=== PATIENT | female | born 1980 | race Caucasian/White ===

== ENCOUNTER 2017-04-16 06:59 | Emergency (ER) | payer OTHER ==
[2017-04-16 07:05] VITALS: TEMP 98.2
[2017-04-16] MEDS ORDERED: ONDANSETRON 4 MG/2 ML VIAL ONE (07:17)
[2017-04-16] MEDS ORDERED: ONDANSETRON 4 MG/2 ML VIAL IVP ONE ×2 (07:19→08:56)
[2017-04-16] MEDS ORDERED: NS 1,000 ML IV ONE ×2 (07:19→12:20)
[2017-04-16] MEDS ORDERED: HYDROmorphONE/DILAUDID 1 MG/ML INJ IVP ONE (07:20)
--- NOTE | 2017-04-16 07:25 | EDPHY ---
H & P Stated Complaint: generalized abd pain and nausea since 0400 Time Seen by Provider: 04/16/17 07:13 HPI/ROS: CHIEF COMPLAINT: Vomiting HISTORY OF PRESENT ILLNESS: The patient is a 36-year-old female who comes to the emergency department complaining of abdominal cramping, pain and now vomiting. She states that she has a over eating disorder and that this has happened to her several times before. She states she has had a lot of stress lately and ate a large amount of food yesterday evening and finished around midnight. She has not had a fever. No diarrhea. She vomited once in the room and now states that she feels almost completely better. She denies risk of . No urinary symptoms. REVIEW OF SYSTEMS: Constitutional: denies: chills, fever, recent illness, recent injury EENTM: denies: blurred vision, double vision, nose congestion Respiratory: denies: cough, shortness of breath Cardiac: denies: chest pain, irregular heart rate, lightheadedness, palpitations Gastrointestinal/Abdominal: See HPI Genitourinary: denies: dysuria, frequency, hematuria, pain Musculoskeletal: denies: joint pain, muscle pain Skin: denies: lesions, rash, jaundice, bruising Neurological: denies: headache, numbness, paresthesia, tingling, dizziness, weakness Hematologic/Lymphatic: denies: blood clots, easy bleeding, easy bruising Immunologic/allergic: denies: HIV/AIDS, transplant EXAM: GENERAL: Well-appearing, well-nourished and in no acute distress. HEAD: Atraumatic, normocephalic. EYES: Pupils equal round and reactive to light, extraocular movements intact, sclera anicteric, conjunctiva are normal. ENT: TMs normal, nares patent, oropharynx clear without exudates. Moist mucous membranes. NECK: Normal range of motion, supple without lymphadenopathy or JVD. LUNGS: Breath sounds clear to auscultation bilaterally and equal. No wheezes rales or rhonchi. HEART: Regular rate and rhythm without murmurs, rubs or gallops. ABDOMEN: Slight tenderness periumbilical , normoactive bowel sounds. No guarding, no rebound. No masses appreciated. BACK: No CVA tenderness, no spinal tenderness, step-offs or deformities EXTREMITIES: Normal range of motion, no pitting or edema. No clubbing or cyanosis. NEUROLOGICAL: Cranial nerves II through XII grossly intact. Normal speech, normal gait. 5/5 strength, normal movement in all extremities, normal sensation PSYCH: Normal mood, normal affect. SKIN: Warm, dry, normal turgor, no visible rashes or lesions. Source: Patient Exam Limitations: No limitations - Personal History LMP (Females 10-55): 1-7 Days Ago Current Tetanus/Diphtheria Vaccine: Yes - Medical/Surgical History Hx Asthma: No Hx Chronic Respiratory Disease: No Hx Diabetes: No Hx Cardiac Disease: No Hx Renal Disease: No Hx Cirrhosis: No Hx Alcoholism: No Hx HIV/AIDS: No Hx Splenectomy or Spleen Trauma: No Other PMH: Colitis - Family History Significant Family History: No pertinent family hx - Social History Smoking Status: Former smoker Alcohol Use: Sober Drug Use: None Constitutional: Initial Vital Signs Temperature (C) 36.8 C 04/16/17 07:02 Heart Rate 90 04/16/17 07:02 Respiratory Rate 16 04/16/17 07:02 Blood Pressure 94/81 H 04/16/17 07:02 O2 Sat (%) 97 04/16/17 07:02 O2 Delivery Mode Room Air Allergies/Adverse Reactions: Gadolinium-Containing Contrast Medi Allergy (Verified 04/16/17 07:02) Home Medications: Medication Instructions Recorded Promethazine HCl [Phenergan 25mg 25 mg PO TID PRN #10 tab 04/16/17 (RX)] Rituxan 04/16/17 Medical Decision Making ED Course/Re-evaluation: Patient is declining imaging at this point stating that she is confident her symptoms are simply from overeating. She feels much better now after vomiting. Will check lab work and re-evaluate. 9:20 a.m. the patient continues to vomit. I will treat with Reglan and and order CT scan. 12:20 a.m. patient is feeling better but is somewhat sedated. We will continue to give her fluids and observed. We discussed her CT scan which is reassuring. 2:00 p.m. the patient is feeling much better. She is ready to go home. I will discharge her with anti nausea medication. Differential Diagnosis: Partial list of the Differential diagnosis considered include but were not limited to; vomiting, gastritis and although unlikely based on the history and physical exam, I also considered the appendicitis, biliary disease obstruction. I discussed these differential diagnoses and the plan with the patient as well as the usual and expected course. The patient understands that the diagnosis is provisional and that in medicine we are not always correct and that further workup is often warranted. Usual and customary warnings were given. All of the patient's questions were answered. The patient was instructed to return to the emergency department should the symptoms at all worsen or return, otherwise to followup with the physician as we discussed. - Data Points Laboratory Results: Laboratory Results 04/16/17 07:20 04/16/17 07:20 Medications Given: Discontinued Medications Hydromorphone HCl (Dilaudid) 0.5 mg IVP EDNOW ONE Stop: 04/16/17 07:21 Last Admin: 04/16/17 10:25 Dose: Not Given Sodium Chloride (Ns) 1,000 mls @ 0 mls/hr IV EDNOW ONE; Wide Open PRN Reason: Protocol Stop: 04/16/17 07:20 Last Admin: 04/16/17 07:22 Dose: 1,000 mls Sodium Chloride (Ns) 1,000 mls @ 0 mls/hr IV EDNOW ONE; Wide Open PRN Reason: Protocol Stop: 04/16/17 12:21 Last Admin: 04/16/17 12:30 Dose: 1,000 mls Lorazepam (Ativan Injection) 1 mg IVP EDNOW ONE Stop: 04/16/17 09:49 Last Admin: 04/16/17 10:17 Dose: 1 mg Metoclopramide HCl (Reglan Injection) 10 mg IVP EDNOW ONE Stop: 04/16/17 09:23 Last Admin: 04/16/17 10:19 Dose: 10 mg Ondansetron HCl (Zofran) 4 mg IVP EDNOW ONE Stop: 04/16/17 07:20 Last Admin: 04/16/17 07:22 Dose: 4 mg Ondansetron HCl (Zofran) 4 mg IVP EDNOW ONE Stop: 04/16/17 08:57 Last Admin: 04/16/17 09:01 Dose: 4 mg Promethazine HCl (Phenergan) 25 mg IVP EDNOW ONE Stop: 04/16/17 09:26 Last Admin: 04/16/17 09:27 Dose: 25 mg Promethazine HCl (Phenergan 25 Mg Prepack #4) 1 btl DIANA COKERW ONE Stop: 04/16/17 14:06 Last Admin: 04/16/17 14:11 Dose: 1 btl Departure - Departure Disposition: Home, Routine, Self-Care Clinical Impression: Vomiting Qualifiers: Vomiting type: unspecified Vomiting Intractability: non-intractable Nausea presence: without nausea Qualified Code(s): R11.11 - Vomiting without nausea Condition: Fair Instructions: Acute Nausea and Vomiting (ED) Referrals: VIRAJ HEARN [Other] - As per Instructions Prescriptions: Promethazine HCl [Phenergan 25mg (RX)] 25 mg PO TID PRN #10 tab PRN Reason: Nausea & Vomiting
[2017-04-16 07:35] LABS: % IMMATURE GRANULYOCYTES 0.2 % (0.0-1.1); ABSOLUTE IMMATURE GRANULOCYTES 0.03 10^3/uL (0.00-0.10); ADD DIFF? NO; ADD MORPH? NO; ADD SCAN? NO; ATYPICAL LYMPHOCYTE FLAG 0 (0-99); FRAGMENT RBC FLAG 0 (0-99); HEMATOCRIT 44.5 % (38.0-47.0); HEMOGLOBIN 15.2 g/dL (12.6-16.3); LEFT SHIFT FLG 0 (0-99); LIPEMIA HEMOLYSIS FLAG 90 (0-99); MEAN CELL HEMOGLOBIN 31.2 pg (27.9-34.1); MEAN CELL HEMOGLOBIN CONCENTR. 34.2 g/dL (32.4-36.7); MEAN CELL VOLUME 91.4 fL (81.5-99.8); MEAN PLATELET VOLUME 9.7 fL (8.7-11.7); PLATELET CLUMPS FLAG 20 (0-99); PLATELET COUNT 298 10^3/uL (150-400); RED BLOOD CELL COUNT 4.87 10^6/uL (4.18-5.33); RED CELL DISTRIBUTION WIDTH 12.4 % (11.5-15.2)
[2017-04-16 07:51] LABS: ALANINE AMINOTRANSFERASE 27 IU/L (9-52); ALBUMIN 4.6 g/dL (3.5-5.0); ALKALINE PHOSPHATASE 42 IU/L (38-126); ANION GAP 15 mEq/L (8-16); ASPARTATE AMINOTRANSFERASE 26 IU/L (14-46); BILIRUBIN,TOTAL 0.6 mg/dL (0.1-1.4); BILIRUBIN-CONJUGATED 0.2 mg/dL (0.0-0.5); BILIRUBIN-UNCONJUGATED 0.4 mg/dL (0.0-1.1); CALCIUM 9.6 mg/dL (8.5-10.4); CARBON DIOXIDE 21 mEq/l (22-31); CHLORIDE 105 mEq/L (97-110); CREATININE 0.8 mg/dL (0.6-1.0); GLOMERULAR FILTRATION RATE > 60; GLUCOSE 93 mg/dL (70-100); POTASSIUM 4.1 mEq/L (3.5-5.2); SODIUM 141 mEq/L (134-144); TOTAL PROTEIN 7.5 g/dL (6.3-8.2)
[2017-04-16] MEDS ORDERED: METOCLOPRAMIDE 10 MG/2 ML VIAL IVP ONE (09:22)
[2017-04-16] MEDS ORDERED: METOCLOPRAMIDE 10 MG/2 ML VIAL ONE (09:23)
[2017-04-16] MEDS ORDERED: PROMETHAZINE HCL 25 MG/ML INJ IVP ONE (09:25)
[2017-04-16 09:31] LABS: COLOR YELLOW; LEUKOCYTE ESTERASE,URINE NEGATIVE (NEGATIVE); NITRITE,URINE NEGATIVE (NEGATIVE)
[2017-04-16 09:35] LABS: RBC,URINE NONE SEEN /hpf (0-3); WBC,URINE NONE SEEN /hpf (0-3)
[2017-04-16] MEDS ORDERED: IOPAMIDOL (ISOVUE-300) 100 ML BTL ONE (09:35)
[2017-04-16] MEDS ORDERED: LORazepam 2 MG/ML INJ IVP ONE (09:48)
[2017-04-16] MEDS ORDERED: LORazepam 2 MG/ML INJ ONE ×2 (10:03→10:16)
--- NOTE | 2017-04-16 11:56 | ASMTCASEMG ---
Living Arrangements What is your living Answers: Alone arrangement? Who do you live with? Type Of Residence What kind of residence do Answers: Apartment you live in? Type of Residence Facility Name Notes: Independent Living at [facility] Case Management Evaluation Functional: ADL / IADL Answers: Other Notes: recent Performance Deficits Due concussion, dizziness to: Date Signed: 04/16/2017 11:55 AM Electronically Signed By:Kandi Swan RN
--- NOTE | 2017-04-16 12:06 | ASMTCMCOM ---
CM Note CM Note Notes: Patient presents to the ED for allergic reaction from CT contrast while getting an outpatient CT angio of her neck, which was ordered by her neurologist Dr Hoang. Patient was recently seen in the ED on 04/11/17 for a head injury after a board fell on her head. Patient was seen in the ED again on 04/15 for post-concussive symptoms including dizziness. Patient lives in an Independent Living apartment at [facility]. She has her medications administered by [facility] staff twice a day, but otherwise she is independent. Patient's daughter Roshni is at bedside in the ED and says she lives 5 minutes away from patient. Patient normally is able to ambulate well without assistance but says she has a cane and walker at home "just in case." Patient has also received physical therapy through the [facility] in the past. Patient admitted for continued monitoring. Anticipate patient will benefit from PT/OT evaluation to ensure she is safe to return home. Patient's PCP is Dr. Zacarias Rose. CM to follow. Date Signed: 04/16/2017 12:05 PM Electronically Signed By:Kandi Swan RN
--- NOTE | 2017-04-16 12:46 | ASDISCHSUM ---
Discharge Information Plan Status: Medically Cleared to Leave: Discharge Date: CM D/C Disposition: ADT D/C Disposition: Projected Discharge Date: Transportation at D/C: Discharge Delay Reason: Follow-Up Date: Discharge Slot: Final Diagnosis: Placement Information Patient Contact Information Contact Name:YONY Relationship:Other Address: Work Phone: City: [facility] Phone: State/Zip Code: Email: Financial Information Financial Class:HMO and PPO Plans Primary Plan Desc:[employer] Primary Plan Number:[id number] Secondary Plan Desc: Secondary Plan Number: Assessment Information [facility] Initial CM Assessment Living Arrangements What is your living Answers: Alone arrangement? Who do you live with? Type Of Residence What kind of residence do Answers: Apartment you live in? Type of Residence Facility Name Notes: Independent Living at [facility] Case Management Evaluation Functional: ADL / IADL Answers: Other Notes: recent Performance Deficits Due concussion, dizziness to: Date Signed: 04/16/2017 11:55 AM Electronically Signed By:Kandi Swan RN [facility] CM Progress Note CM Note CM Note Notes: Patient presents to the ED for allergic reaction from CT contrast while getting an outpatient CT angio of her neck, which was ordered by her neurologist Dr Hoang. Patient was recently seen in the ED on 04/11/17 for a head injury after a board fell on her head. Patient was seen in the ED again on 04/15 for post-concussive symptoms including dizziness. Patient lives in an Independent Living apartment at [facility]. She has her medications administered by [facility] staff twice a day, but otherwise she is independent. Patient's daughter Roshni is at bedside in the ED and says she lives 5 minutes away from patient. Patient normally is able to ambulate well without assistance but says she has a cane and walker at home "just in case." Patient has also received physical therapy through the [facility] in the past. Patient admitted for continued monitoring. Anticipate patient will benefit from PT/OT evaluation to ensure she is safe to return home. Patient's PCP is Dr. Zacarias Rose. CM to follow. Date Signed: 04/16/2017 12:05 PM Electronically Signed By:Kandi Swan RN Intervention Information
[2017-04-16] MEDS ORDERED: PROMETHAZINE 25 MG PREPACK #4 BTL TAKEHOME ONE (14:05)
[2017-04-16 14:17] VITALS: BP 98/63; PULSE 100; RESP 16; O2SAT 95
== END 2017-04-16 14:20 | disposition home or self-care (01) ==
DX: R11.11 Vomiting without nausea (principal); E86.9 Volume depletion, unspecified; Z87.891 Personal history of nicotine dependence
CPT/HCPCS: 96374; J2060; J2405; J2550; J2765; Q9967